=== PATIENT | male | born 1980 | race Caucasian/White ===

== ENCOUNTER 2016-06-07 20:54 | Emergency (ER) | payer SELFPAY ==
--- NOTE | 2016-06-07 21:12 | CPEKG ---
Heart Rate: 78 RR Interval: 769 P-R Interval: 168 QRSD Interval: 82 QT Interval: 336 QTC Interval: 383 P [place]: 67 QRS [place]: 87 T Wave [place]: 55 EKG Severity - NORMAL ECG - EKG Impression: SINUS RHYTHM Electronically Signed By: Lionel St 07-Jun-2016 21:20:56
--- NOTE | 2016-06-07 21:22 | EDPHY ---
H & P Stated Complaint: CP x 5 days Time Seen by Provider: 06/07/16 21:11 HPI/ROS: CHIEF COMPLAINT: Chest pain HISTORY OF PRESENT ILLNESS: The patient is a 36-year-old man who comes to the emergency department complaining of left-sided chest pain radiating to his back. He states that it has been present for 5 days. He began was walking. He describes as moderate. It tends to improve with rest. No shortness of breath, no diaphoresis, no nausea vomiting, no lightheadedness. Is not worsened by movement or deep inspiration. He does have a history of von Willebrand's disease type 2. He is a smoker. No leg pain or swelling, no recent travel. REVIEW OF SYSTEMS: Constitutional: denies: chills, fever, recent illness, recent injury EENTM: denies: blurred vision, double vision, nose congestion Respiratory: denies: cough, shortness of breath Cardiac: Chest pain, denies: irregular heart rate, lightheadedness, palpitations Gastrointestinal/Abdominal: denies: abdominal pain, diarrhea, nausea, vomiting, blood streaked stools Genitourinary: denies: dysuria, frequency, hematuria, pain Musculoskeletal: denies: joint pain, muscle pain Skin: denies: lesions, rash, jaundice, bruising Neurological: denies: headache, numbness, paresthesia, tingling, dizziness, weakness Hematologic/Lymphatic: denies: blood clots, easy bleeding, easy bruising Immunologic/allergic: denies: HIV/AIDS, transplant EXAM: GENERAL: Well-appearing, well-nourished and in no acute distress. HEAD: Atraumatic, normocephalic. EYES: Pupils equal round and reactive to light, extraocular movements intact, sclera anicteric, conjunctiva are normal. ENT: TMs normal, nares patent, oropharynx clear without exudates. Moist mucous membranes. NECK: Normal range of motion, supple without lymphadenopathy or JVD. LUNGS: Breath sounds clear to auscultation bilaterally and equal. No wheezes rales or rhonchi. HEART: Regular rate and rhythm without murmurs, rubs or gallops. ABDOMEN: Soft, nontender, normoactive bowel sounds. No guarding, no rebound. No masses appreciated. BACK: No CVA tenderness, no spinal tenderness, step-offs or deformities EXTREMITIES: Normal range of motion, no pitting or edema. No clubbing or cyanosis. NEUROLOGICAL: Cranial nerves II through XII grossly intact. Normal speech, normal gait. 5/5 strength, normal movement in all extremities, normal sensation PSYCH: Normal mood, normal affect. SKIN: Warm, dry, normal turgor, no visible rashes or lesions. Source: Patient Exam Limitations: No limitations - Personal History Current Tetanus/Diphtheria Vaccine: Yes Current Tetanus Diphtheria and Acellular Pertussis (TDAP): Yes - Medical/Surgical History Hx Asthma: No Hx Chronic Respiratory Disease: No Hx Diabetes: No Hx Cardiac Disease: Yes Hx Renal Disease: No Hx Cirrhosis: No Hx Alcoholism: Yes Hx HIV/AIDS: No Hx Splenectomy or Spleen Trauma: No Other PMH: PMH: VWType II, pseudohemophilia, heart murmur. PSH: oral sx, left leg sx (rods, plates, screws) - Family History Significant Family History: No pertinent family hx - Social History Smoking Status: Current every day smoker Alcohol Use: Sober Drug Use: None Constitutional: Initial Vital Signs Temperature (C) 36.7 C 06/07/16 20:58 Heart Rate 84 06/07/16 20:58 Respiratory Rate 16 06/07/16 20:58 Blood Pressure 142/93 H 06/07/16 20:58 O2 Sat (%) 95 06/07/16 20:58 O2 Delivery Mode Room Air Allergies/Adverse Reactions: No Known Allergies Allergy (Verified 06/07/16 20:57) Medical Decision Making - Diagnostics EKG Interpretation: An EKG obtained and was read and documented in trace view. Please see trace view for full reading and report. Sinus rhythm, no ischemic changes or right heart strain. Imaging: X-ray: chest x-ray was obtained. I viewed the images myself on the PACS system. My interpretation of the images is: negative for acute disease . The radiologist interpretation is old granuloma unchanged no acute changes. ED Course/Re-evaluation: 10:30 p.m. the patient is reassured. He declines further lab work or observation. He is eager to go home. We discussed indications for returning. We discussed differential including pleurisy cetera. He is currently symptom free. Differential Diagnosis: Partial list of the Differential diagnosis considered include but were not limited to; chest pain, pleurisy, pneumonia, bronchitis, acute coronary disease and although unlikely based on the history and physical exam, I also considered arrhythmia, pneumothorax, PE. I discussed these differential diagnoses and the plan with the patient as well as the usual and expected course. The patient understands that the diagnosis is provisional and that in medicine we are not always correct and that further workup is often warranted. Usual and customary warnings were given. All of the patient's questions were answered. The patient was instructed to return to the emergency department should the symptoms at all worsen or return, otherwise to followup with the physician as we discussed. - Data Points Laboratory Results: Laboratory Results 06/07/16 21:14 06/07/16 21:14 06/07/16 21:14 WBC 7.21 10^3/uL (3.80-9.50) RBC 4.42 10^6/uL (4.40-6.38) Hgb 14.6 g/dL (13.7-17.5) Hct 42.1 % (40.0-51.0) MCV 95.2 fL (81.5-99.8) MCH 33.0 pg (27.9-34.1) MCHC 34.7 g/dL (32.4-36.7) RDW 13.8 % (11.5-15.2) Plt Count 301 10^3/uL (150-400) MPV 9.8 fL (8.7-11.7) Neut % (Auto) 40.5 % (39.3-74.2) Lymph % (Auto) 47.9 H % (15.0-45.0) [place] % (Auto) 9.0 % (4.5-13.0) Eos % (Auto) 1.7 % (0.6-7.6) Baso % (Auto) 0.8 % (0.3-1.7) Nucleat RBC Rel Count 0.0 % (0.0-0.2) Absolute Neuts (auto) 2.92 10^3/uL (1.70-6.50) Absolute Lymphs (auto) 3.45 H 10^3/uL (1.00-3.00) Absolute Monos (auto) 0.65 10^3/uL (0.30-0.80) Absolute Eos (auto) 0.12 10^3/uL (0.03-0.40) Absolute Basos (auto) 0.06 10^3/uL (0.02-0.10) Absolute Nucleated RBC 0.00 10^3/uL (0-0.01) Immature Gran % 0.1 % (0.0-1.1) Immature Gran # 0.01 10^3/uL (0.00-0.10) D-Dimer < 0.27 ug/mLFEU (0.00-0.50) Sodium 139 mEq/L (134-144) Potassium 4.0 mEq/L (3.5-5.2) Chloride 104 mEq/L (97-110) Carbon Dioxide 25 mEq/l (22-31) Anion Gap 10 mEq/L (8-16) BUN 19 mg/dL (7-23) Creatinine 1.0 mg/dL (0.7-1.3) Estimated GFR > 60 Glucose 95 mg/dL (70-100) Calcium 9.3 mg/dL (8.5-10.4) Troponin I < 0.012 ng/mL (0-0.034) Medications Given: Discontinued Medications Aspirin (Aspirin) 324 mg PO EDNOW ONE Stop: 06/07/16 21:39 Last Admin: 06/07/16 21:47 Dose: 324 mg Sodium Chloride (Ns) 1,000 mls @ 0 mls/hr IV ONCE ONE PRN Reason: Wide Open Stop: 06/07/16 21:39 Last Admin: 06/07/16 21:46 Dose: 1,000 mls Departure - Departure Disposition: Home, Routine, Self-Care Clinical Impression: Chest pain Qualifiers: Chest pain type: unspecified Qualifier Code: (R07.9) Chest pain, unspecified Condition: Fair Instructions: Chest Pain (ED) Referrals: Ryan Le MD [Primary Care Provider] - As per Instructions
[2016-06-07] MEDS ORDERED: ASPIRIN 81 MG CHEWABLE TAB PO ONE (21:38)
[2016-06-07] MEDS ORDERED: NS 1,000 ML IV ONE (21:38)
[2016-06-07 21:51] LABS: % IMMATURE GRANULYOCYTES 0.1 % (0.0-1.1); ABSOLUTE IMMATURE GRANULOCYTES 0.01 10^3/uL (0.00-0.10); ADD DIFF? NO; ADD MORPH? NO; ADD SCAN? NO; ATYPICAL LYMPHOCYTE FLAG 10 (0-99); FRAGMENT RBC FLAG 0 (0-99); HEMATOCRIT 42.1 % (40.0-51.0); HEMOGLOBIN 14.6 g/dL (13.7-17.5); LEFT SHIFT FLG 0 (0-99); LIPEMIA HEMOLYSIS FLAG 90 (0-99); MEAN CELL HEMOGLOBIN CONCENTR. 34.7 g/dL (32.4-36.7); MEAN CELL VOLUME 95.2 fL (81.5-99.8); MEAN PLATELET VOLUME 9.8 fL (8.7-11.7); PLATELET CLUMPS FLAG 0 (0-99); PLATELET COUNT 301 10^3/uL (150-400); RED BLOOD CELL COUNT 4.42 10^6/uL (4.40-6.38); RED CELL DISTRIBUTION WIDTH 13.8 % (11.5-15.2)
[2016-06-07 21:52] LABS: ANION GAP 10 mEq/L (8-16); CALCIUM 9.3 mg/dL (8.5-10.4); CARBON DIOXIDE 25 mEq/l (22-31); CHLORIDE 104 mEq/L (97-110); GLOMERULAR FILTRATION RATE > 60; GLUCOSE 95 mg/dL (70-100); SODIUM 139 mEq/L (134-144)
[2016-06-07 22:04] LABS: TROPONIN I < 0.012 ng/mL (0-0.034)
[2016-06-07 22:15] VITALS: RESP 15
--- NOTE | 2016-06-07 22:28 | DX ---
Chest PA and lateral History: stabbing chest pain for 5 days. History of tobacco abuse. Findings: 6 mm calcified granuloma in the left lower lobe is unchanged from January 05, 2016. No suspic ious pulmonary masses are found. Lungs are clear and there are no pleural effusions. No pneumothorax. Heart size is normal. Impression: 1. Incidental old calcified granuloma of left lower lobe. 2. No acute cardiopulmonary features.
[2016-06-07 22:43] VITALS: BP 134/82; PULSE 72; TEMP 97.7; O2SAT 97
== END 2016-06-07 22:42 | disposition home or self-care (01) ==
DX: R07.9 Chest pain, unspecified (principal); F17.200 Nicotine dependence, unspecified, uncomplicated

== ENCOUNTER 2016-11-27 19:46 | Emergency (ER) | payer SELFPAY ==
[2016-11-27 20:01] VITALS: TEMP 98.4; O2SAT 97
[2016-11-27] MEDS ORDERED: LORazepam 2 MG/ML INJ IVP ONE (20:40)
[2016-11-27] MEDS ORDERED: NS 1,000 ML IV ONE (20:40)
[2016-11-27 20:46] LABS: % IMMATURE GRANULYOCYTES 0.4 % (0.0-1.1); ABSOLUTE IMMATURE GRANULOCYTES 0.03 10^3/uL (0.00-0.10); ADD DIFF? NO; ADD MORPH? NO; ADD SCAN? NO; ATYPICAL LYMPHOCYTE FLAG 10 (0-99); FRAGMENT RBC FLAG 0 (0-99); HEMATOCRIT 41.5 % (40.0-51.0); LEFT SHIFT FLG 0 (0-99); LIPEMIA HEMOLYSIS FLAG 80 (0-99); MEAN CELL HEMOGLOBIN 32.5 pg (27.9-34.1); MEAN CELL HEMOGLOBIN CONCENTR. 33.7 g/dL (32.4-36.7); MEAN CELL VOLUME 96.3 fL (81.5-99.8); MEAN PLATELET VOLUME 9.7 fL (8.7-11.7); PLATELET CLUMPS FLAG 40 (0-99); PLATELET COUNT 341 10^3/uL (150-400); RED BLOOD CELL COUNT 4.31 10^6/uL (4.40-6.38); RED CELL DISTRIBUTION WIDTH 12.9 % (11.5-15.2)
[2016-11-27 20:59] LABS: ANION GAP 11 mEq/L (8-16); CALCIUM 9.3 mg/dL (8.5-10.4); CARBON DIOXIDE 18 mEq/l (22-31); CHLORIDE 113 mEq/L (97-110); CREATININE 0.8 mg/dL (0.7-1.3); GLOMERULAR FILTRATION RATE > 60; GLUCOSE 97 mg/dL (70-100); POTASSIUM 4.3 mEq/L (3.5-5.2); SODIUM 142 mEq/L (134-144)
--- NOTE | 2016-11-27 21:03 | EDPHY ---
H & P Stated Complaint: benzo, hallucinogenic, Vistaril abuse last week, still confused and spacey Time Seen by Provider: 11/27/16 20:16 HPI/ROS: CHIEF COMPLAINT: Hallucinations HISTORY OF PRESENT ILLNESS: 36-year-old male presents emergency department concerned about drug use causing hallucinations. Patient states he was at a democr[employer] that lasted 10 days. He used loss of drugs in many unknown drugs. He thinks he used LSD, ketamine, Ecstasy. Patient states he left the democrat 5 days ago after he ate a Brownie. Patient reports he developed nausea and vomiting that lasted 3 days and auditory and visual hallucinations that are still present. Patient denies suicidal ideations, homicidal ideations. He denies fevers. He reports his nausea, vomiting and diarrhea have subsided. He states his hallucinations are decreasing. Patient reports for the last 4 months he has been using kratom 2-3 times per day. He reports 5 or 6 days ago he loss this and has not taken any since. Patient denies benzodiazepine abuse. He denies methamphetamine use. REVIEW OF SYSTEMS: A comprehensive 10 point review of systems is otherwise negative aside from elements mentioned in the history of present illness. Source: Patient Exam Limitations: No limitations - Personal History Current Tetanus/Diphtheria Vaccine: Yes Tetanus Vaccine Date: 2013 - Medical/Surgical History Hx Asthma: No Hx Chronic Respiratory Disease: No Hx Diabetes: No Hx Cardiac Disease: Yes Hx Renal Disease: No Hx Cirrhosis: No Hx Alcoholism: Yes Hx HIV/AIDS: No Hx Splenectomy or Spleen Trauma: No Other PMH: PMH: VWType II, pseudohemophilia, heart murmur, substance abuse. PSH : oral sx, left leg sx (rods, plates, screws) - Social History Smoking Status: Current every day smoker Drug Use: Other (polysubstance) Constitutional: Initial Vital Signs Temperature (C) 36.9 C 11/27/16 19:59 Heart Rate 93 11/27/16 19:59 Respiratory Rate 18 11/27/16 19:59 Blood Pressure 154/100 H 11/27/16 19:59 O2 Sat (%) 97 11/27/16 19:59 O2 Delivery Mode Room Air Allergies/Adverse Reactions: No Known Allergies Allergy (Verified 06/07/16 20:57) Home Medications: Medication Instructions Recorded NK [No Known Home Meds] 11/27/16 Medical Decision Making ED Course/Re-evaluation: IV established, CBC and chemistry panel obtained. Patient is given 1 mg of lorazepam iv. After researching kratom I think the patient's symptoms are due to kratom withdrawals. He has not had any for 6 days and has been using this chronically 2-3 times per day for 3 months. Withdrawal symptoms can be again within 12 hours of stopping this followed by 2-3 days of nausea, vomiting and diarrhea followed by hallucinations. These are the patient's symptoms. The patient reports feeling improved after 1 mg of lorazepam and 1 L of IV fluids. He is awake, alert and oriented to person, place, time and event. I do not think the patient is a harm to himself or others. I think is safe to be discharged home. Patient is given [facility] for follow-up and he is given information on the crisis Center. Patient is comfortable with this plan. Differential Diagnosis: Diagnosis considered but not limited to polysubstance abuse,kratom withdrawal, electrolyte abnormality, mental illness. - Data Points Laboratory Results: Laboratory Results 11/27/16 20:36 11/27/16 20:36 11/27/16 11/27/16 20:36 20:36 WBC 8.49 10^3/uL 10^3/uL (3.80-9.50) RBC 4.31 10^6/uL L 10^6/uL (4.40-6.38) Hgb 14.0 g/dL g/dL (13.7-17.5) Hct 41.5 % % (40.0-51.0) MCV 96.3 fL fL (81.5-99.8) MCH 32.5 pg pg (27.9-34.1) MCHC 33.7 g/dL g/dL (32.4-36.7) RDW 12.9 % % (11.5-15.2) Plt Count 341 10^3/uL 10^3/uL (150-400) MPV 9.7 fL fL (8.7-11.7) Neut % (Auto) 60.8 % % (39.3-74.2) Lymph % (Auto) 28.7 % % (15.0-45.0) [place] % (Auto) 8.1 % % (4.5-13.0) Eos % (Auto) 1.3 % % (0.6-7.6) Baso % (Auto) 0.7 % % (0.3-1.7) Nucleat RBC Rel Count 0.0 % % (0.0-0.2) Absolute Neuts (auto) 5.16 10^3/uL 10^3/uL (1.70-6.50) Absolute Lymphs (auto) 2.44 10^3/uL 10^3/uL (1.00-3.00) Absolute Monos (auto) 0.69 10^3/uL 10^3/uL (0.30-0.80) Absolute Eos (auto) 0.11 10^3/uL 10^3/uL (0.03-0.40) Absolute Basos (auto) 0.06 10^3/uL 10^3/uL (0.02-0.10) Absolute Nucleated RBC 0.00 10^3/uL 10^3/uL (0-0.01) Immature Gran % 0.4 % % (0.0-1.1) Immature Gran # 0.03 10^3/uL 10^3/uL (0.00-0.10) Sodium 142 mEq/L mEq/L (134-144) Potassium 4.3 mEq/L mEq/L (3.5-5.2) Chloride 113 mEq/L H mEq/L (97-110) Carbon Dioxide 18 mEq/l L mEq/l (22-31) Anion Gap 11 mEq/L mEq/L (8-16) BUN 18 mg/dL mg/dL (7-23) Creatinine 0.8 mg/dL mg/dL (0.7-1.3) Estimated GFR > 60 Glucose 97 mg/dL mg/dL (70-100) Calcium 9.3 mg/dL mg/dL (8.5-10.4) Medications Given: Discontinued Medications Sodium Chloride (Ns) 1,000 mls @ 0 mls/hr IV ONCE ONE; Wide Open PRN Reason: Protocol Stop: 11/27/16 20:41 Last Admin: 11/27/16 20:52 Dose: 1,000 mls Lorazepam (Ativan Injection) 1 mg IVP EDNOW ONE Stop: 11/27/16 20:41 Last Admin: 11/27/16 20:52 Dose: 1 mg Departure - Departure Disposition: Home, Routine, Self-Care Clinical Impression: Polysubstance abuse Condition: Good Instructions: Polysubstance Abuse (ED) Additional Instructions: 1. Stop using drugs and stop using kratom. 2. [facility] operate a 20/12 psychiatric crisis unit located at [address] [place] [address]. The telephone number for the 24 hour crisis center is [phone]. 3. Please return to the ED if you are feeling suicidal, having thoughts of harming yourself/others or should you feel unsafe or have worsening symptoms. 4. Follow up with [facility], call Tuesday to schedule an appointment to be seen. Return to the emergency department for any new symptoms, worsening symptoms or concerns. Referrals: [facility],. [Clinic] - As per Instructions
[2016-11-27 22:04] VITALS: BP 110/80; PULSE 77; RESP 16
== END 2016-11-27 22:04 | disposition home or self-care (01) ==
DX: F19.10 Other psychoactive substance abuse, uncomplicated (principal); F17.200 Nicotine dependence, unspecified, uncomplicated
CPT/HCPCS: 96374; J2060

== ENCOUNTER 2017-01-17 17:43 | Emergency (ER) | payer MEDICAID ==
[2017-01-17] MEDS ORDERED: NS 1,000 ML IV ONE ×2 (18:17→19:10)
[2017-01-17] MEDS ORDERED: ONDANSETRON 4 MG/2 ML VIAL IVP ONE (18:17)
--- NOTE | 2017-01-17 18:19 | EDPHY ---
H & P Time Seen by Provider: 01/17/17 17:57 HPI/ROS: CHIEF COMPLAINT: Alcohol withdrawal, vomiting HISTORY OF PRESENT ILLNESS: 36-year-old male presents to the emergency department by private vehicle with alcohol withdrawal. The patient has a history of alcoholism and has been drinking a "5th a day". The patient has had 1 alcohol withdrawal related seizure approximately 5 years ago. He would like to quit drinking. He is requesting detox to help him quit drinking. He has vomited multiple times today. No diarrhea. No chest pain or difficulty breathing. He does feel that his heart rate is rapid. Denies a headache. Denies any reported trauma. He does smoke marijuana. He denies any other substance abuse. REVIEW OF SYSTEMS: Constitutional: No fever, no chills. Eyes: No double or blurry vision. ENT: No sore throat. Respiratory: No cough, no shortness of breath. Cardiac: No chest pain. Gastrointestinal: No abdominal pain, vomiting or diarrhea. Genitourinary: No dysuria. Musculoskeletal: No neck or back pain. Skin: No rashes. Neurological: No headache. Past Medical/Surgical History: Depression, anxiety, alcoholism Social History: Single Smoking Status: Current every day smoker Physical Exam: General Appearance: Alert, no distress. No visible signs of trauma to his head. Not anxious. Not tremulous. Eyes: Pupils equal and round. Extraocular motions are all intact. ENT: Mouth: Mucous membranes slightly dry. Respiratory: No wheezing, rhonchi, or rales, lungs are clear to auscultation. Cardiovascular: Regular rate and rhythm. Gastrointestinal: Abdomen is soft and nontender, no masses, no rebound or guarding, bowel sounds normal. Neurological: Alert and oriented x 3, cranial nerves II through XII grossly intact Skin: Warm and dry, no rashes. Musculoskeletal: Nontender to palpate along the cervical, thoracic or lumbar spine. Neck is supple. Extremities: Full range of motion and no peripheral edema. Psychiatric: Patient is oriented X 3, there is no agitation. Constitutional: Initial Vital Signs Temperature (C) 37 C 01/17/17 17:48 Heart Rate 110 H 01/17/17 17:48 Respiratory Rate 18 01/17/17 17:48 Blood Pressure 132/87 H 01/17/17 17:48 O2 Sat (%) 95 01/17/17 17:48 O2 Delivery Mode Room Air O2 (L/minute) 2 Allergies/Adverse Reactions: No Known Allergies Allergy (Verified 01/17/17 17:48) Home Medications: Medication Instructions Recorded NK [No Known Home Meds] 11/27/16 Medical Decision Making ED Course/Re-evaluation: Laboratory studies are within normal limits. The patient received IV normal saline as well as IV Ativan and IV Zofran. He is feeling much better. He tolerated p.o. fluids and will be discharged to the addiction recovery Center. Differential Diagnosis: Including but not limited to electrolyte abnormality, acute alcohol withdrawal, breakthrough seizures - Data Points Laboratory Results: Laboratory Results 01/17/17 18:08 01/17/17 18:08 01/17/17 01/17/17 18:08 18:08 WBC 10.05 10^3/uL H 10^3/uL (3.80-9.50) RBC 4.99 10^6/uL 10^6/uL (4.40-6.38) Hgb 16.0 g/dL g/dL (13.7-17.5) Hct 46.9 % % (40.0-51.0) MCV 94.0 fL fL (81.5-99.8) MCH 32.1 pg pg (27.9-34.1) MCHC 34.1 g/dL g/dL (32.4-36.7) RDW 13.2 % % (11.5-15.2) Plt Count 386 10^3/uL 10^3/uL (150-400) MPV 9.6 fL fL (8.7-11.7) Neut % (Auto) 49.3 % % (39.3-74.2) Lymph % (Auto) 42.2 % % (15.0-45.0) [place] % (Auto) 5.6 % % (4.5-13.0) Eos % (Auto) 1.3 % % (0.6-7.6) Baso % (Auto) 1.0 % % (0.3-1.7) Nucleat RBC Rel Count 0.0 % % (0.0-0.2) Absolute Neuts (auto) 4.96 10^3/uL 10^3/uL (1.70-6.50) Absolute Lymphs (auto) 4.24 10^3/uL H 10^3/uL (1.00-3.00) Absolute Monos (auto) 0.56 10^3/uL 10^3/uL (0.30-0.80) Absolute Eos (auto) 0.13 10^3/uL 10^3/uL (0.03-0.40) Absolute Basos (auto) 0.10 10^3/uL 10^3/uL (0.02-0.10) Absolute Nucleated RBC 0.00 10^3/uL 10^3/uL (0-0.01) Immature Gran % 0.6 % % (0.0-1.1) Immature Gran # 0.06 10^3/uL 10^3/uL (0.00-0.10) Sodium 142 mEq/L mEq/L (134-144) Potassium 4.2 mEq/L mEq/L (3.5-5.2) Chloride 105 mEq/L mEq/L (97-110) Carbon Dioxide 17 mEq/l L mEq/l (22-31) Anion Gap 20 mEq/L H mEq/L (8-16) BUN 15 mg/dL mg/dL (7-23) Creatinine 0.9 mg/dL mg/dL (0.7-1.3) Estimated GFR > 60 Glucose 86 mg/dL mg/dL (70-100) Calcium 9.9 mg/dL mg/dL (8.5-10.4) Ethyl Alcohol 142 mg/dL H mg/dL (0-10) Medications Given: Discontinued Medications Sodium Chloride (Ns) 1,000 mls @ 0 mls/hr IV ONCE ONE PRN Reason: Wide Open Stop: 01/17/17 18:18 Last Admin: 01/17/17 18:44 Dose: 1,000 mls Sodium Chloride (Ns) 1,000 mls @ 0 mls/hr IV ONCE ONE PRN Reason: Wide Open Stop: 01/17/17 19:11 Last Admin: 01/17/17 19:00 Dose: 1,000 mls Lorazepam (Ativan Injection) 1 mg IVP EDNOW ONE Stop: 01/17/17 18:37 Last Admin: 01/17/17 18:50 Dose: 1 mg Ondansetron HCl (Zofran) 4 mg IVP EDNOW ONE Stop: 01/17/17 18:18 Last Admin: 08/21/17 18:45 Dose: 4 mg Departure - Departure Disposition: Home, Routine, Self-Care Clinical Impression: Alcohol withdrawal Qualifiers: Complication of substance-induced condition: uncomplicated Qualified Code(s): F10.230 - Alcohol dependence with withdrawal, uncomplicated Condition: Good Instructions: Alcohol Withdrawal (ED) Additional Instructions: You are being discharged to the addiction recovery Center. Please return to the emergency department if you develop recurring vomiting or if you feel worse in any way. Referrals: [facility] [Outside] - As per Instructions
[2017-01-17 18:28] LABS: % IMMATURE GRANULYOCYTES 0.6 % (0.0-1.1); ABSOLUTE IMMATURE GRANULOCYTES 0.06 10^3/uL (0.00-0.10); ADD DIFF? NO; ADD MORPH? NO; ADD SCAN? NO; ATYPICAL LYMPHOCYTE FLAG 10 (0-99); FRAGMENT RBC FLAG 0 (0-99); HEMATOCRIT 46.9 % (40.0-51.0); LEFT SHIFT FLG 0 (0-99); LIPEMIA HEMOLYSIS FLAG 90 (0-99); MEAN CELL HEMOGLOBIN 32.1 pg (27.9-34.1); MEAN CELL HEMOGLOBIN CONCENTR. 34.1 g/dL (32.4-36.7); MEAN PLATELET VOLUME 9.6 fL (8.7-11.7); PLATELET CLUMPS FLAG 10 (0-99); PLATELET COUNT 386 10^3/uL (150-400); RED BLOOD CELL COUNT 4.99 10^6/uL (4.40-6.38); RED CELL DISTRIBUTION WIDTH 13.2 % (11.5-15.2)
[2017-01-17] MEDS ORDERED: LORazepam 2 MG/ML INJ IVP ONE (18:36)
[2017-01-17 18:44] LABS: ANION GAP 20 mEq/L (8-16); CALCIUM 9.9 mg/dL (8.5-10.4); CARBON DIOXIDE 17 mEq/l (22-31); CHLORIDE 105 mEq/L (97-110); CREATININE 0.9 mg/dL (0.7-1.3); ETHANOL SERUM 142 mg/dL (0-10); GLOMERULAR FILTRATION RATE > 60; GLUCOSE 86 mg/dL (70-100); POTASSIUM 4.2 mEq/L (3.5-5.2); SODIUM 142 mEq/L (134-144)
[2017-01-17 20:17] VITALS: TEMP 98.2; O2SAT 96
[2017-01-17] MEDS ORDERED: CHLORDIAZEPOXIDE 25MG PREPK#6 BTL TAKEHOME ONE (20:54)
[2017-01-17 21:07] VITALS: BP 131/77; PULSE 81; RESP 16
== END 2017-01-17 21:07 | disposition home or self-care (01) ==
DX: F10.230 Alcohol dependence with withdrawal, uncomplicated (principal); F17.200 Nicotine dependence, unspecified, uncomplicated
CPT/HCPCS: 96374; G0480; J2060; J2405

== ENCOUNTER 2017-01-19 00:43 | Emergency (ER) | payer MEDICAID ==
--- NOTE | 2017-01-19 01:17 | EDPHY ---
H & P Stated Complaint: wants etoh detox Time Seen by Provider: 01/19/17 01:14 HPI/ROS: CHIEF COMPLAINT: Intoxication HISTORY OF PRESENT ILLNESS: Patient is a 36-year-old man who was seen here yesterday for intoxication and sent to the recovery Center. He was discharged this morning and began drinking again. He now presents again to the emergency department for intoxication and wishes to go to the alcohol recovery Center. He is able to ambulate. He states his last drink was about an hour ago. He is not having any withdrawal symptoms. REVIEW OF SYSTEMS: Constitutional: denies: chills, fever, recent illness, recent injury EENTM: denies: blurred vision, double vision, nose congestion Respiratory: denies: cough, shortness of breath Cardiac: denies: chest pain, irregular heart rate, lightheadedness, palpitations Gastrointestinal/Abdominal: denies: abdominal pain, diarrhea, nausea, vomiting, blood streaked stools Genitourinary: denies: dysuria, frequency, hematuria, pain Musculoskeletal: denies: joint pain, muscle pain Skin: denies: lesions, rash, jaundice, bruising Neurological: denies: headache, numbness, paresthesia, tingling, dizziness, weakness Hematologic/Lymphatic: denies: blood clots, easy bleeding, easy bruising Immunologic/allergic: denies: HIV/AIDS, transplant EXAM: GENERAL: no acute distress. HEAD: Atraumatic, normocephalic. EYES: Pupils equal round and reactive to light, extraocular movements intact, sclera anicteric, conjunctiva are normal. ENT: TMs normal, nares patent, oropharynx clear without exudates. Moist mucous membranes. NECK: Normal range of motion, supple without lymphadenopathy or JVD. LUNGS: Breath sounds clear to auscultation bilaterally and equal. No wheezes rales or rhonchi. HEART: Regular rate and rhythm without murmurs, rubs or gallops. ABDOMEN: Soft, nontender, normoactive bowel sounds. No guarding, no rebound. No masses appreciated. BACK: No CVA tenderness, no spinal tenderness, step-offs or deformities EXTREMITIES: Normal range of motion, no pitting or edema. No clubbing or cyanosis. NEUROLOGICAL: Cranial nerves II through XII grossly intact. Normal speech, normal gait. 5/5 strength, normal movement in all extremities, normal sensation PSYCH: Normal mood, normal affect. SKIN: Warm, dry, normal turgor, no visible rashes or lesions. Source: Patient Exam Limitations: No limitations - Personal History Tetanus Vaccine Date: 2013 - Medical/Surgical History Hx Asthma: No Hx Chronic Respiratory Disease: No Hx Diabetes: No Hx Cardiac Disease: Yes Hx Renal Disease: No Hx Cirrhosis: No Hx Alcoholism: Yes Hx HIV/AIDS: No Hx Splenectomy or Spleen Trauma: No Other PMH: PMH: VWType II, pseudohemophilia, heart murmur, substance abuse. PSH : oral sx, left leg sx (rods, plates, screws). mitral valve prolapse - Family History Significant Family History: No pertinent family hx - Social History Smoking Status: Current every day smoker Alcohol Use: Sober Drug Use: None Constitutional: Initial Vital Signs Temperature (C) 36.8 C 01/19/17 00:45 Heart Rate 113 H 01/19/17 00:45 Respiratory Rate 20 01/19/17 00:45 Blood Pressure 140/82 H 01/19/17 00:45 O2 Sat (%) 94 01/19/17 00:45 O2 Delivery Mode Room Air Allergies/Adverse Reactions: No Known Allergies Allergy (Verified 01/17/17 17:48) Home Medications: Medication Instructions Recorded NK [No Known Home Meds] 11/27/16 Medical Decision Making ED Course/Re-evaluation: The patient is ambulatory. He is requesting treatment for alcohol addiction. We will transfer to the alcohol recovery Center. He denies coingestants. Differential Diagnosis: Partial list of the Differential diagnosis considered include but were not limited to; alcohol intoxication, polysubstance abuse and although unlikely based on the history and physical exam, I also considered head injury, infection , seizure. I discussed these differential diagnoses and the plan with the patient as well as the usual and expected course. The patient understands that the diagnosis is provisional and that in medicine we are not always correct and that further workup is often warranted. Usual and customary warnings were given. All of the patient's questions were answered. The patient was instructed to return to the emergency department should the symptoms at all worsen or return, otherwise to followup with the physician as we discussed. - Data Points Medications Given: Discontinued Medications Calcium Carbonate (Tums) 500 mg PO TID ONE Stop: 01/19/17 01:53 Last Admin: 01/19/17 01:54 Dose: 500 mg Chlordiazepoxide (Librium 25 Mg Prepack#6) 1 btl TAKECARLTONE EDNOW ONE Stop: 01/19/17 01:25 Last Admin: 01/19/17 01:54 Dose: 1 btl Departure - Departure Disposition: Home, Routine, Self-Care Clinical Impression: Alcoholic intoxication Qualifiers: Complication of substance-induced condition: with unspecified complication Qualified Code(s): F10.929 - Alcohol use, unspecified with intoxication, unspecified Condition: Fair Instructions: Chlordiazepoxide/Clidinium (By mouth), Abuse of Alcohol (ED) Additional Instructions: Go directly to the alcohol recovery Center Referrals: Cr Silverio MD [Medical Doctor] - As per Instructions
[2017-01-19] MEDS ORDERED: CHLORDIAZEPOXIDE 25MG PREPK#6 BTL TAKEHOME ONE (01:24)
[2017-01-19] MEDS ORDERED: CALCIUM CARBONATE 500 MG CHEWABLE TAB PO ONE (01:52)
[2017-01-19 03:25] VITALS: BP 136/71; PULSE 98; RESP 16; TEMP 98.1; O2SAT 97
== END 2017-01-19 02:46 | disposition home or self-care (01) ==
DX: F10.929 Alcohol use, unspecified with intoxication, unspecified (principal); E11.9 Type 2 diabetes mellitus without complications; F17.200 Nicotine dependence, unspecified, uncomplicated

== ENCOUNTER 2017-12-09 17:26 | Emergency (ER) | payer MEDICAID ==
[2017-12-09 17:36] VITALS: BP 118/67
--- NOTE | 2017-12-09 18:37 | EDPHY ---
H & P Stated Complaint: Poss skin infection Time Seen by Provider: 12/09/17 18:36 HPI/ROS: HPI: This is a 37-year-old male who presents with Chief Complaint: Skin infection Location:groin Quality: skin infection Duration: 1 week Signs and Symptoms: no fever, no nausea, no vomiting, no diarrhea, no urinary symptoms, no chest pain, no shortness of breath, no wheezing, no cough, no sore throat, no neck stiffness, no joint pain, no swollen glands, no ear pain, no rash Timing: waxes and wanes Severity:mild Context: Patient has a history of von Willebrand's type 2, pseudo hemophilia, substance abuse, mitral valve prolapse presents with complaints of a skin infection in his groin over the last week after"man skaping." He is concerned that he may have"staph infection.". He reports that he has been washing the area with soap water daily has noted some ingrown hairs that appear to become enlarged and tender to palpation. He has not had any recent sexual intercourse other than oral sex but he has noted some burning with urination the last 2 days. He denies any penile discharge. Modifying Factors: None Comment: ROS: see HPI Constitutional: no fever, no chills, no weight loss Eyes: No blurred vision Respiratory: No shortness of breath, no cough Cardiovascular: No chest pain, no palpitations Gastrointestinal: No nausea, no vomiting, no diarrhea, no hematemesis, no blood in stool Genitourinary: No dysuria, no blood in urine Extremities: No myalgias, no edema Neurologic: No weakness, no numbness Skin: No rashes, no petechiae Hematologic: No bruising, no bleeding MEDICAL/SURGICAL/SOCIAL HISTORY: PMH: VWType II, pseudohemophilia, heart murmur, substance abuse PSH: oral sx, left leg sx (rods, plates, screws), mitral valve prolapse Social history: Heavy smoker. Family history noncontributory. CONSTITUTIONAL: Nontoxic-appearing adult white male, awake and alert, no obvious distress HEENT: Atraumatic and normocephalic, PERRL, EOMI. Nares patent; no rhinorrhea; no nasal mucosal edema. Tympanic membranes clear. Oropharynx clear, no exudate and moist pink mucosa. Airway patent. No lymphadenopathy. No meningismus. Cardiovascular: Normal S1/S2, regular rate, regular rhythm, without murmur rub or gallop. PULMONARY/CHEST: Symmetrical and nontender. Clear to auscultation bilaterally. Good air movement. No accessory muscle usage. ABDOMEN: Soft, nondistended, nontender, no rebound, no guarding, no peritoneal signs, no masses or organomegaly. No CVAT. RECTAL: no external hemorrhoids, no fissures, no palpable masses Male : circumcised penis, bilateral descended testes, no testicular swelling, no testicular masses, no penile discharge, no lesions, negative Prehn's sign. Patient has 2-3 raised papules consistent with folliculitis with minimal surrounding erythema. No fluctuance appreciated in these papules. EXTREMITIES: 2/2 pulses, strength 5/5, no deformities, no clubbing, no cyanosis or edema. NEUROLOGICAL: no focal neuro deficits. GCS 15. SKIN: Warm and dry, no erythema. no rash. Good capillary refill. HIP: Flexion to 125, extension to 115, hyper extension to 15, abduction to 45. Pain with internal rotation and external rotation. tenderness over greater trochanter. Source: Patient Exam Limitations: No limitations - Personal History Current Tetanus/Diphtheria Vaccine: Yes Tetanus Vaccine Date: 2013 - Medical/Surgical History Hx Asthma: No Hx Chronic Respiratory Disease: No Hx Diabetes: No Hx Cardiac Disease: Yes Hx Renal Disease: No Hx Cirrhosis: No Hx Alcoholism: Yes Hx HIV/AIDS: No Hx Splenectomy or Spleen Trauma: No Other PMH: PMH: VWType II, pseudohemophilia, heart murmur, substance abuse. PSH : oral sx, left leg sx (rods, plates, screws). mitral valve prolapse - Social History Smoking Status: Heavy smoker Constitutional: Initial Vital Signs Temperature (C) 37.1 C 12/09/17 17:33 Heart Rate 105 H 12/09/17 17:33 Respiratory Rate 16 12/09/17 17:33 Blood Pressure 118/67 12/09/17 17:33 O2 Sat (%) 94 12/09/17 17:33 O2 Delivery Mode Room Air Allergies/Adverse Reactions: No Known Allergies Allergy (Verified 12/09/17 17:36) Home Medications: Medication Instructions Recorded Cephalexin [Keflex (*)] 500 mg PO TID #21 cap 12/09/17 Sulfamethox/Tmp 800/160 mg 1 tab PO BID #14 tab 12/09/17 [Bactrim Ds] Medical Decision Making ED Course/Re-evaluation: Urinalysis, urine GC, oral medications ordered Patient given Keflex and Bactrim DS No fluctuance to I and D Will prophylactically treat for GC with IM Rocephin and p.o. Azithromycin Urinalysis shows 2+ LE, 10-15 RBC, 50-200 WBC; no signs of lisa infection This patient was seen under the supervision of my secondary supervising physician. I evaluated care for this patient independently. Discussed this patient with Dr. Bill. Differential Diagnosis: Differential diagnosis includes but is not limited to prostatitis, urinary tract infection, gonorrhea, chlamydia, Trichomonas, folliculitis, MRSA infection , abscess, cellulitis. - Data Points Laboratory Results: 12/09/17 12/09/17 19:15 19:15 Urine Color YELLOW Urine Appearance HAZY Urine pH 6.0 (5.0-7.5) Ur Specific [place] 1.032 H (1.002-1.030) Urine Protein NEGATIVE (NEGATIVE) Urine Ketones TRACE H (NEGATIVE) Urine Blood NEGATIVE (NEGATIVE) Urine Nitrate NEGATIVE (NEGATIVE) Urine Bilirubin NEGATIVE (NEGATIVE) Urine Urobilinogen 4.0 EU H EU (0.2-1.0) Ur Leukocyte Esterase 2+ H (NEGATIVE) Urine RBC 10-15 /hpf H /hpf (0-3) Urine WBC 50-182 /hpf H /hpf (0-3) Ur Epithelial Cells TRACE /lpf /lpf (NONE-1+) Urine Mucus TRACE /lpf /lpf (NONE-1+) Urine Glucose NEGATIVE (NEGATIVE) C.trachomatis RNA (TMA) Pending N.gonorrhoeae RNA (TMA) Pending Medications Given: Discontinued Medications Cephalexin HCl (Keflex) 500 mg PO EDNOW ONE PRN Reason: Protocol Stop: 12/09/17 18:46 Last Admin: 12/09/17 19:15 Dose: 500 mg Trimethoprim/Sulfamethoxazole (Bactrim Ds) 1 ea PO EDNOW ONE PRN Reason: Protocol Stop: 12/09/17 18:42 Last Admin: 12/09/17 19:15 Dose: 1 ea Departure - Departure Disposition: Home, Routine, Self-Care Clinical Impression: Folliculitis Condition: Good Instructions: Folliculitis (ED) Additional Instructions: Please take all medications as prescribed. Do not skip any doses. Apply warm compress to the area twice a day for approximately 15-20 minutes at a time. Do not shave the area until all symptoms have resolved. Urinalysis shows no signs of lisa infection. Gonorrhea and chlamydia test will be sent off. Today you received antibiotic prophylaxis for gonorrhea and chlamydia. Referrals: [facility],. [Clinic] - As per Instructions Prescriptions: Cephalexin [Keflex (*)] 500 mg PO TID #21 cap Sulfamethox/Tmp 800/160 mg [Bactrim Ds] 1 tab PO BID #14 tab
[2017-12-09] MEDS ORDERED: SULFAMETHOX/TMP 800/160 MG 1 TAB PO ONE (18:41)
[2017-12-09] MEDS ORDERED: CEPHALEXIN 500 MG CAP PO ONE (18:45)
[2017-12-09] MEDS ORDERED: AZITHROMYCIN 250 MG TAB PO ONE (19:42)
[2017-12-12 14:04] LABS: GC AMPLIFICATION GENPROBE POSITIVE (NEGATIVE)
== END 2017-12-09 20:02 | disposition home or self-care (01) ==
DX: L73.9 Follicular disorder, unspecified (principal); F17.200 Nicotine dependence, unspecified, uncomplicated

== ENCOUNTER 2018-05-10 02:07 | Emergency (ER) | payer MEDICAID ==
--- NOTE | 2018-05-10 02:15 | EDPHY ---
H & P Time Seen by Provider: 05/10/18 02:11 HPI/ROS: Chief Complaint: Throat pain, HPI: 38-year-old male had a sensation that his throat might be closing with drawer nystagmus throat and loss of his voice. Patient states that he has been having a lot of congestion lately and has had the sensation of clearing his throat frequently. Did not have any difficulty breathing. He called EMS. They did not note any significant obstruction. Initially was only talking in a whisper but was able to get his voice pack per EMS. Denies any fevers or chills. Did have a similar episode when he had mono when he was very young. No cough. No fevers or chills. No chest pain or shortness of breath. He is currently without complaint. ROS: 10 systems were reviewed and were negative except those elements noted in the HPI. PMH: Depression Social History: No smoking Family History: non-contributory Physical Exam: Gen: Awake, Alert, No Distress HEENT: Nose: no rhinorrhea Eyes: PERRLA, EOMI Mouth: Moist mucosa , no oral pharyngeal erythema, edema or exudate. Voice is normal Neck: Supple, no JVD, no stridor Chest: nontender, lungs clear to auscultation Heart: S1, S2 normal, no murmur Abd: Soft, non-tender, no guarding Back: no CVA tenderness, no midline tenderness Ext: no edema, non-tender Skin: no rash Neuro: CN II-XII intact, Sensation grossly intact, Strength 5/5 in bilateral upper and lower extremities - Personal History Tetanus Vaccine Date: 2013 - Medical/Surgical History Hx Asthma: No Hx Chronic Respiratory Disease: No Hx Diabetes: No Hx Cardiac Disease: Yes Hx Renal Disease: No Hx Cirrhosis: No Hx Alcoholism: Yes Hx HIV/AIDS: No Hx Splenectomy or Spleen Trauma: No Other PMH: PMH: VWType II, pseudohemophilia, heart murmur, substance abuse. PSH : oral sx, left leg sx (rods, plates, screws). mitral valve prolapse - Social History Smoking Status: Heavy smoker Allergies/Adverse Reactions: haloperidol [From Haldol] Allergy (Verified 05/10/18 02:15) Home Medications: Medication Instructions Recorded Lexapro 05/10/18 Medical Decision Making ED Course/Re-evaluation: 38-year-old male with symptoms consistent with rhinitis and postnasal drip. He does have some discomfort in his oropharynx. Will give a single dose of steroid here for his symptoms. Will discharge with referral for primary care physician. I have recommended [id number] decongestants for his symptoms. Departure - Departure Disposition: Home, Routine, Self-Care Clinical Impression: Postnasal drip, Viral URI Condition: Good Instructions: Upper Respiratory Infection (ED), Postnasal Drip (DC) Additional Instructions: You may take [id number] cough and cold medications to treat your symptoms. Follow up with primary care physician in 3-4 days if symptoms are not improving. Return to the emergency department for difficulty breathing, worsening pain, uncontrolled fevers or chills, or any other concerns. Referrals: NONE *PRIMARY CARE P,. [Primary Care Provider] - As per Instructions
[2018-05-10] MEDS ORDERED: DEXAMETHASONE 4 MG TAB PO ONE (02:16)
[2018-05-10 02:18] VITALS: BP 141/86
[2018-05-10] MEDS ORDERED: CEPACOL LOZENGE PO ONE ×2 (02:19→02:20)
== END 2018-05-10 02:27 | disposition home or self-care (01) ==
LOC: EDUNIT#
DX: J06.9 Acute upper respiratory infection, unspecified (principal); R09.82 Postnasal drip; F17.210 Nicotine dependence, cigarettes, uncomplicated

== ENCOUNTER 2018-05-12 19:25 | Emergency (ER) | payer MEDICAID ==
[2018-05-12] MEDS ORDERED: IBUPROFEN 600 MG TAB PO ONE (20:07)
[2018-05-12] MEDS ORDERED: DEXAMETHASONE 4 MG TAB PO ONE (20:07)
--- NOTE | 2018-05-12 20:08 | EDPHY ---
H & P Time Seen by Provider: 05/12/18 19:36 HPI/ROS: CHIEF COMPLAINT: Sore throat and cough HISTORY OF PRESENT ILLNESS: Patient is a 38-year-old male here with chief complaint of sore throat and cough for the last 4-5 days. He was seen here 3 days ago and treated with oral steroids Motrin. He states he felt better after being treated with steroids but has felt worse for the last day or 2. Denies any trouble breathing or swallowing. He has had no fever. Also reports mild dry cough and runny nose. He also reports loss of voice. ROS As detailed in HPI Smoking Status: Heavy smoker Physical Exam: General: Alert and oriented. Nontoxic appearing. No acute distress HEENT: Pupils PERRLA. No oral lesions. Uvula midline. No tonsillar erythema or exudate. No drooling. No cervical lymphadenopathy Cardiopulmonary: Regular rate and rhythm. No lower extremity edema Skin: [place] warm and dry. No lesions. Muscle skeletal: Moving all 4 extremities. Equal strength in upper extremities and lower extremities. Ambulatory. Constitutional: Initial Vital Signs Temperature (C) 36.4 C 05/12/18 19:29 Heart Rate 110 H 05/12/18 19:29 Respiratory Rate 18 05/12/18 19:29 Blood Pressure 126/86 H 05/12/18 19:29 O2 Sat (%) 95 05/12/18 19:29 O2 Delivery Mode Room Air Allergies/Adverse Reactions: haloperidol [From Haldol] Allergy (Verified 05/12/18 19:30) Home Medications: Medication Instructions Recorded Lexapro 05/10/18 LYRICA 05/12/18 traZODone 05/12/18 Medical Decision Making ED Course/Re-evaluation: Patient here with sore throat, cough and loss of voice. Is all consistent with viral laryngitis. We did check a strep and that was negative. He is given oral Decadron and Motrin and felt improved. I did consider strep pharyngitis, epiglottitis, bacterial tracheitis, peritonsillar abscess - Data Points Laboratory Results: 05/12/18 05/12/18 Unknown 20:29 Group A Strep Screen NEGATIVE (NEGATIVE) Group A Strep DNA Pending Medications Given: Discontinued Medications Dexamethasone (Decadron) 10 mg PO EDNOW ONE Stop: 05/12/18 20:08 Last Admin: 05/12/18 20:31 Dose: 10 mg Ibuprofen (Motrin) 600 mg PO EDNOW ONE Stop: 05/12/18 20:08 Last Admin: 05/12/18 20:31 Dose: 600 mg Point of Care Test Results: Strep Strep Throat Swab Collection 05/12/18 Date Strep Throat Swab Swab 20:29 Collection Time Departure - Departure Disposition: Home, Routine, Self-Care Clinical Impression: Laryngitis Condition: Good Instructions: Laryngitis (ED) Referrals: Ryan Le MD [Primary Care Provider] - As per Instructions
[2018-05-12 21:17] VITALS: BP 115/80
== END 2018-05-12 21:17 | disposition home or self-care (01) ==
DX: J04.0 Acute laryngitis (principal)